=== PATIENT | male | born 1950 | race Caucasian/White ===

== ENCOUNTER 2017-08-09 18:45 | Observation (INO) ==
[2017-08-09] MEDS ORDERED: Aspirin 325 MG TABLET PO ONE (20:24)
[2017-08-09 20:39] LABS: Basophils % 0.4 %; Eosinophils # 0.2 K/mcL (0.0-0.6); Eosinophils % 2.3 %; Hematocrit 40.4 % (37.5-50.1); Immature Granulocytes % 0.3 % (0-4); Lymphocytes # 1.3 K/mcL (0.6-4.6); Lymphocytes % 12.8 %; Mean Corpuscular HGB Conc 34.7 g/dL (31.6-35.5); Mean Corpuscular Hemoglobin 30.3 pg (28.0-33.3); Mean Corpuscular Volume 87.4 fL (83.0-100.0); Mean Platelet Volume 8.4 fL (9.4-12.4); Monocytes # 1.2 K/mcL (0.0-1.3); Monocytes % 11.7 %; Neutrophils # 7.1 K/mcL (1.6-8.9); Platelet Count 308 K/mcL (140-400); Red Blood Count 4.62 M/mcL (4.19-5.50); Red Cell Distribution Width 12.5 % (11.5-14.5); Segmented Neutrophils % 72.5 %
--- NOTE | 2017-08-09 20:51 | Emergency Department Note ---
Disposition Clinical Impression: Chest pain Disposition: Admitted As Inpatient Condition: Good Time of Disposition: 21:45 Chest Pain HPI - General Chief Complaint: ED Chest Pain Stated Complaint: Chest tightness pressure Time Seen by Provider: 08/09/17 20:08 Source: patient Mode of arrival: ambulatory Limitations: no limitations Vital Signs Reviewed: Yes Nursing Notes Reviewed: Yes - History of Present Illness HPI Narrative: Patient presents to the ED with a 2 day history of chest discomfort. Patient has no previous history of coronary artery disease and had a normal stress test several years ago. Reports that yesterday evening he started having some dull upper central his chest discomfort radiating into his jaws bilaterally. Nothing seemed to make it better. It did go away but it came back around 2 PM today. States it is made worse by sitting forward completely. States his pain is 2 out of 10 currently. Denied any request for further treatment at this time. No nausea, diaphoresis or vomiting. No abdominal pain or shortness of breath. No pain or swelling in his legs. Severity scale (1-10): 6 - Related Data Home Medications Medication Instructions Recorded Confirmed Atorvastatin [Lipitor] 10 mg PO HS 08/09/17 08/09/17 Multivitamin [One Daily Essential] 1 each PO DAILY 08/09/17 08/09/17 Allergies Allergy/AdvReac Type Severity Reaction Status Date / Time Penicillins Allergy Hives Verified 09/16/16 13:25 Sulfa (Sulfonamide Allergy Hives Verified 09/16/16 13:25 Antibiotics) aspirin [ASA] AdvReac Gastrointestinal Verified 09/16/16 13:25 Upset Tetracyclines AdvReac See Verified 09/16/16 13:25 Comments zomax Allergy See Uncoded 09/16/16 13:25 Comments All systems ED: reviewed and negative except as stated. Constitutional: Denies: fever Cardiovascular: Reports: chest pain. Denies: dyspnea on exertion Respiratory: Denies: dyspnea Gastrointestinal: Denies: vomiting Musculoskeletal: Denies: back pain Neurological: Denies: headache Chest Pain PMH - Past Medical History Medical history: Reports: hyperlipidemia Psychiatric history: Reports: no psych history - Social History Smoking Status: Never smoker Alcohol use: Reports: occasionally Drug use: Reports: none Physical Exam - General Limitations: no limitations General appearance: alert, in no apparent distress - Head Head exam: atraumatic, normocephalic, normal inspection - Eye Eye exam: Present: normal appearance, PERRL, EOMI - ENT ENT exam: normal exam, normal oropharynx, mucous membranes moist - Neck Neck exam: Present: normal inspection, full ROM, trachea midline - Chest Chest inspection: Present: normal inspection, symmetric chest wall rise. Absent : tenderness - Respiratory Respiratory exam: Present: normal lung sounds bilaterally - Cardiovascular Cardiovascular exam: Present: regular rate, normal rhythm, normal heart sounds - Abdominal Exam Abdominal exam: Present: soft, Non-Tender. Absent: tenderness, distention, guarding, rebound, rigidity - Extremities Exam Extremities exam: Present: normal inspection, full ROM, normal capillary refill. Absent: tenderness, pedal edema - Neurological Exam Neurological exam: Present: alert, oriented X3 - Psychiatric Psychiatric exam: Present: normal affect, normal mood - Skin Skin exam: Present: warm, dry, intact, normal color Course Course Narrative: 67 -year-old male presenting with chest pain. Heart score is 4. Will admit. - Reevaluation(s) Reevaluation #1: Patient admitted to the hospital service. Vital Signs Temperature 99.0 F 08/09/17 19:01 Pulse Rate 97 08/09/17 19:01 Respiratory Rate 16 08/09/17 19:01 Blood Pressure 155/87 08/09/17 19:01 O2 Sat by Pulse Oximetry 98 08/09/17 19:01 Temperature 98.2 F 08/10/17 03:24 Pulse Rate 83 08/10/17 03:24 Respiratory Rate 16 08/10/17 03:24 Blood Pressure 119/45 08/10/17 03:24 O2 Sat by Pulse Oximetry 92 08/10/17 03:24 Oxygen Delivery Oxygen Delivery Room Air Chest Pain - Medical Records Medical records reviewed: Yes I reviewed the patient's medical records. - Lab Data Lab results reviewed: Yes I reviewed the patient's lab results. Result diagrams: 08/09/17 20:18 08/09/17 20:18 Lab Results 08/09/17 08/09/17 08/09/17 Range/Units 20:18 20:18 20:18 WBC 9.8 (4.3-11.1) K/mcL RBC 4.62 (4.19-5.50) M/mcL Hgb 14.0 (12.9-16.9) g/dL Hct 40.4 (37.5-50.1) % MCV 87.4 (83.0-100.0) fL MCH 30.3 (28.0-33.3) pg MCHC 34.7 (31.6-35.5) g/dL RDW 12.5 (11.5-14.5) % Plt Count 308 (140-400) K/mcL MPV 8.4 L (9.4-12.4) fL Immature Gran % 0.3 (0-4) % Seg Neutrophils % 72.5 % Lymphocytes % 12.8 % Monocytes % 11.7 % Eosinophils % 2.3 % Basophils % 0.4 % Neutrophils # 7.1 (1.6-8.9) K/mcL Lymphocytes # 1.3 (0.6-4.6) K/mcL Monocytes # 1.2 (0.0-1.3) K/mcL Eosinophils # 0.2 (0.0-0.6) K/mcL Basophils # 0.0 (0.0-0.2) K/mcL D-Dimer (0-500) ng/mLFEU Sodium 140 (136-145) mEq/L Potassium 3.9 (3.5-4.5) mEq/L Chloride 105 (98-109) mEq/L Carbon Dioxide 26 (19-29) mEq/L BUN 11 (8-26) mg/dL Creatinine 0.99 (0.72-1.25) mg/dL Est GFR ( Amer) > 60 (> 60) Est GFR (Non-Af Amer) > 60 (> 60) BUN/Creatinine Ratio 11 (6-26) Glucose 120 H (70-99) mg/dL Calculated Osmolality 291 (280-300) Calcium 10.1 (8.6-10.8) mg/dL Troponin I 0.00 (0-0.03) ng/mL 08/09/17 Range/Units 20:18 WBC (4.3-11.1) K/mcL RBC (4.19-5.50) M/mcL Hgb (12.9-16.9) g/dL Hct (37.5-50.1) % MCV (83.0-100.0) fL MCH (28.0-33.3) pg MCHC (31.6-35.5) g/dL RDW (11.5-14.5) % Plt Count (140-400) K/mcL MPV (9.4-12.4) fL Immature Gran % (0-4) % Seg Neutrophils % % Lymphocytes % % Monocytes % % Eosinophils % % Basophils % % Neutrophils # (1.6-8.9) K/mcL Lymphocytes # (0.6-4.6) K/mcL Monocytes # (0.0-1.3) K/mcL Eosinophils # (0.0-0.6) K/mcL Basophils # (0.0-0.2) K/mcL D-Dimer 333 (0-500) ng/mLFEU Sodium (136-145) mEq/L Potassium (3.5-4.5) mEq/L Chloride (98-109) mEq/L Carbon Dioxide (19-29) mEq/L BUN (8-26) mg/dL Creatinine (0.72-1.25) mg/dL Est GFR ( Amer) (> 60) Est GFR (Non-Af Amer) (> 60) BUN/Creatinine Ratio (6-26) Glucose (70-99) mg/dL Calculated Osmolality (280-300) Calcium (8.6-10.8) mg/dL Troponin I (0-0.03) ng/mL - Radiology Data Radiology results reviewed: Yes I reviewed the patient's radiology results. Chest X-Ray 08/09/17 19:06 IMPRESSION: No radiographic evidence of acute cardiopulmonary disease. D/ / Baldemar Vann MD / Baldemar Vann MD Interpreting Provider: Baldemar Vann MD - EKG Data EKG attestation: Yes I reviewed and interpreted this EKG. EKG results narrative: Sinus rhythm, rate 88, para 128, QRS 102, QTC 41, normal axis, no ischemic changes Heart Score - Score History: Moderately Suspicious EKG: Normal Age: Greater than 65 Risk Factors: 1-2 risk factors Troponin: Less than normal limit HEART Score Total: 4 Attestation Statement - Attestation Attestation: I, Gianni Price, examined this patient and my medical decision-making was reviewed with the GROUP ACCOUNT DIRECTOR/PA/Advanced Practice Nurse/Resident Physician. I agree with the documented findings, disposition and treatment plan as described except to the extent set forth below. 67-year-old male presents with concerns of chest pain intermittently over the past 2 days. Patient states the pain as a tightness in his chest that radiates to his left neck. Patient reports associated shortness of breath however he denies diaphoresis or palpitations or syncope. Last stress test was greater than 3 years ago. Patient denies fever, chills, vomiting, diarrhea. Initial troponin negative. Initial EKG did not show evidence of STEMI. Patient will be admitted to the hospital for further care and evaluation of his acute chest pain.
[2017-08-09 20:52] LABS: BUN/Creatinine Ratio 11 (6-26); Blood Urea Nitrogen 11 mg/dL (8-26); Calcium 10.1 mg/dL (8.6-10.8); Carbon Dioxide 26 mEq/L (19-29); Chloride 105 mEq/L (98-109); Glucose 120 mg/dL (70-99); Osmolality,Calculated 291 (280-300); Potassium 3.9 mEq/L (3.5-4.5); Sodium 140 mEq/L (136-145); eGFR For African Americans > 60 (> 60); eGFR For Non-African Americans > 60 (> 60)
[2017-08-10] MEDS ORDERED: Acetaminophen 325 MG TABLET PO PRN (07:55)
[2017-08-10] MEDS ORDERED: *HR* HYDROcodone/Acet 5/325 mg TABLET PO PRN (07:55)
[2017-08-10] MEDS ORDERED: Naloxone 0.4 MG/ML INJ IVP PRN (07:55)
[2017-08-10] MEDS ORDERED: Ondansetron 4 MG/2 ML VIAL IVP PRN (07:55)
--- NOTE | 2017-08-10 07:55 | Internal Med History&Physical ---
Date of Encounter: 08/10/17 Time of Encounter: 07:54 Assessment and Plan (1) Hyperlipidemia Current visit: Yes Status: Acute We will check lipid panel in a.m. Continue Lipitor. Qualifiers: Hyperlipidemia type: unspecified Qualified Code(s): E78.5 - Hyperlipidemia , unspecified (2) DVT prophylaxis Current visit: Yes Status: Acute Encourage early ambulation. He does not require pharmacological prophylaxis per the VTE assessment score. (3) Chest pain Current visit: Yes Status: Acute Subjective features concerning for coronary artery disease, hold her overall chest pain is atypical. EKG was normal. Her troponin was negative. Chest pain has resolved. He has an adverse reaction to aspirin and therefore I will not prescribe aspirin. Will observe, place heart monitor, trend troponin, obtain echocardiogram and stress test. Qualifiers: Chest pain type: precordial pain Qualified Code(s): R07.2 - Precordial pain Internal Medicine - H&P: HPI Chief complaint: Chest pain Admitted From: Emergency Dept Plans for Post Hospital Care: Home History of present illness: Mr. Mccormack is a 67 year old male with past medical history significant for coronary artery disease who presented to the hospital for evaluation of chest pain. He reported sudden onset midsternal dull, pressure-like chest pain radiating to the neck, graded at 6/10 associated with shortness of breath that started while he was playing with his grandchild. His pain lasted for 3 hours between 6 PM and 9 PM last night instantaneously resolved. Workup done in the emergency department included an EKG which was negative and troponin within normal limits. He was admitted for further care. A 10 point review of systems was positive for back pain he has had recent back surgery, and his back pain has significantly improved. Past medical history dyslipidemia Family history positive for VT and the patient's brother at age 58. Social history he denies tobacco alcohol and drug use. Past Med Surg Social Fam HX - Past Medical History Medical history: hyperlipidemia Psychiatric history: no psych history - Social History Smoking Status: Never smoker Smokeless Tobacco Status: No Alcohol use: occasionally Drug use: none - Family History Brother Living Status: Age at : 58 Hx Family Cardiac Disorders: Yes (VT) Internal Medicine - H&P: Meds Atorvastatin [Lipitor] 10 mg PO HS 08/09/17 [History] Multivitamin [One Daily Essential] 1 each PO DAILY 08/09/17 [History] 3 Allergy/AdvReac Type Severity Reaction Status Date / Time Penicillins Allergy Hives Verified 09/16/16 13:25 Sulfa (Sulfonamide Allergy Hives Verified 09/16/16 13:25 Antibiotics) aspirin [ASA] AdvReac Gastrointestinal Verified 09/16/16 13:25 Upset Tetracyclines AdvReac See Verified 09/16/16 13:25 Comments zomax Allergy See Uncoded 09/16/16 13:25 Comments All Systems PM: A 10-system review of systems was performed and is negative for pertinent findings except as documented above in the HPI. - Constitutional Vitals: Temp Pulse Resp BP Pulse Ox 98.0 F 77 16 105/67 95 08/10/17 07:46 08/10/17 07:46 08/10/17 07:46 08/10/17 07:46 08/10/17 07:46 General appearance: Present: A&O X 3, no acute distress - Eye Eye exam: Present: PERRL, conjuntiva pink, sclera anicteric Pupils: Present: PERRL - Respiratory Respiratory exam: Present: CTAB. Absent: accessory muscle use, rales, rhonchi, wheezes - Cardiovascular Cardiovascular exam: Present: RRR, +S1, +S2. Absent: diastolic murmur, gallop, rubs, systolic murmur - GI/Abdominal GI/Abdominal exam: Present: normal bowel sounds, soft, no peritoneal signs. Absent: distended, tenderness - Extremities Exam Extremities exam: Present: warm, radial pulses palpable and symmetrical. Absent : calf tenderness, cyanotic, pedal edema - Skin Skin exam: Present: dry, intact Internal Med - H&P Results - Labs CBC & Chem 7: 08/09/17 20:18 08/09/17 20:18 Labs: Cardiac Enzymes 08/10/17 Range/Units 06:04 Troponin I 0.00 (0-0.03) ng/mL - EKG Data -: EKG Interpreted by Myself EKG shows normal: sinus rhythm, axis, intervals, QRS complexes, ST-T waves Rate: normal (88 BPM)
--- NOTE | 2017-08-10 12:37 | Electrocardiograph Report ---
[place] [id number] Test Date: 2017-08-09 Pat Name: Gideon Mccormack Department: [id number] Room: 3B Gender: M Sole Rounder: MAGNO : 1950 Requested By: Lia Price Order Number: [id number] Reading MD: Zaid Hudson Measurements Intervals [place] Rate: 88 P: 18 HI: 128 QRS: 11 QRSD: 102 T: 56 QT: 355 QTc: 401 Interpretive Statements SINUS RHYTHM Electronically Signed On 08-10-2017 12:36:01 EDT by Zaid Hudson
[2017-08-11 04:15] LABS: Basophils # 0.1 K/mcL (0.0-0.2); Basophils % 0.7 %; Eosinophils # 0.4 K/mcL (0.0-0.6); Eosinophils % 4.8 %; Hematocrit 38.4 % (37.5-50.1); Hemoglobin 13.2 g/dL (12.9-16.9); Immature Granulocytes % 0.2 % (0-4); Lymphocytes # 1.6 K/mcL (0.6-4.6); Lymphocytes % 20.3 %; Mean Corpuscular HGB Conc 34.4 g/dL (31.6-35.5); Mean Corpuscular Hemoglobin 30.1 pg (28.0-33.3); Mean Corpuscular Volume 87.5 fL (83.0-100.0); Mean Platelet Volume 8.6 fL (9.4-12.4); Monocytes # 0.9 K/mcL (0.0-1.3); Monocytes % 11.4 %; Neutrophils # 5.1 K/mcL (1.6-8.9); Platelet Count 284 K/mcL (140-400); Red Blood Count 4.39 M/mcL (4.19-5.50); Red Cell Distribution Width 12.4 % (11.5-14.5); Segmented Neutrophils % 62.6 %
[2017-08-11 04:23] LABS: BUN/Creatinine Ratio 16 (6-26); Blood Urea Nitrogen 14 mg/dL (8-26); Calcium 9.4 mg/dL (8.6-10.8); Carbon Dioxide 26 mEq/L (19-29); Chloride 106 mEq/L (98-109); Chol/HDL Ratio 2.7 (0-4.9); Cholesterol 128 mg/dL (< 200); Glucose 103 mg/dL (70-99); HDL Cholesterol 48 mg/dL (40-59); LDL Cholesterol,Calculated 67 mg/dL (0-99); Magnesium 2.1 mg/dL (1.6-2.6); Osmolality,Calculated 291 (280-300); Potassium 3.8 mEq/L (3.5-4.5); Sodium 140 mEq/L (136-145); Triglycerides 65 mg/dL (< 150); eGFR For African Americans > 60 (> 60); eGFR For Non-African Americans > 60 (> 60)
[2017-08-11] MEDS ORDERED: Regadenoson 0.4 MG/5 ML SYRINGE IVP ONE (06:03)
--- NOTE | 2017-08-11 11:48 | Internal Med Progress Note ---
<Ruthie Aguilar - Last Filed: 08/11/17 13:30> Date of Encounter: 08/11/17 Time of Encounter: 11:45 - Assessment and plan (1) Chest pain Current Visit: Yes Status: Acute Assessment and plan: Patient with atypical chest pain that he describes as pleuritic and positional in nature. Initial cardiac workup in the emergency department was negative for ACS. However, patient does have positive family history for a brother with an GA at 58. Patient underwent stress testing this morning. -Follow-up stress test. -Patient with adverse reactions to aspirin including nausea. -Stress test negative, patient will be discharged home from the hospital. Qualifiers: Chest pain type: unspecified Qualified Code(s): R07.9 - Chest pain, unspecified (2) Hyperlipidemia Current Visit: Yes Status: Acute Assessment and plan: Patient takes atorvastatin per his primary care physician. -Continue home medications. Qualifiers: Hyperlipidemia type: unspecified Qualified Code(s): E78.5 - Hyperlipidemia , unspecified (3) DVT prophylaxis Current Visit: Yes Status: Acute Assessment and plan: Patient ambulating around the room. - Subjective Interval history: Mr. Montiel is a 67-year-old male with past medical history of hyperlipidemia. He presented to the hospital for evaluation of chest pain which he reports as midsternal dull, pressure-like chest pain radiating to his back and neck. He describes this chest pain as pleuritic and positional. Workup in the emergency department including EKG and troponin were negative. Patient went for a stress test this morning. He was resting comfortably this morning. He did state his pain returned while he was taking deep breaths during my examination. He describes his pain as being in his back. Upon further questioning, patient says this pain began shortly after starting to spread fertilizer on Wednesday. He has denied any nausea or vomiting. He states his shortness of breath is really more from pain on taking a breath. - Constitutional Vitals: Temp Pulse Resp BP Pulse Ox 97.8 F 71 14 122/73 95 08/11/17 08:59 08/11/17 08:59 08/11/17 08:59 08/11/17 08:59 08/11/17 08:59 General appearance: Present: A&O X 3, no acute distress - Respiratory Respiratory exam: Present: CTAB. Absent: accessory muscle use, rales, rhonchi, wheezes - Cardiovascular Cardiovascular exam: Present: RRR, +S1, +S2. Absent: diastolic murmur, gallop, rubs, systolic murmur - GI/Abdominal GI/Abdominal exam: Present: normal bowel sounds, soft, no peritoneal signs. Absent: distended, tenderness - Extremities Exam Extremities exam: Present: warm, radial pulses palpable and symmetrical. Absent : calf tenderness, cyanotic, pedal edema Internal Medicine: Result - Labs CBC & Chem 7: 08/11/17 03:36 08/11/17 03:36 Labs: Short CBC 08/11/17 Range/Units 03:36 WBC 8.1 (4.3-11.1) K/mcL Hgb 13.2 (12.9-16.9) g/dL Hct 38.4 (37.5-50.1) % Plt Count 284 (140-400) K/mcL Neutrophils # 5.1 (1.6-8.9) K/mcL BMP 08/11/17 03:36 Sodium 140 Potassium 3.8 Chloride 106 Carbon Dioxide 26 BUN 14 Creatinine 0.86 Glucose 103 H Calcium 9.4 Cardiac Enzymes 08/10/17 Range/Units 12:12 Troponin I 0.01 (0-0.03) ng/mL - ABG Interpretation ABG results: PT/INR, D-dimer D-Dimer 333 ng/mLFEU (0-500) 08/09/17 20:18 - Impressions Impressions Echocardiogram 08/10/17 14:59 Impressions: LVEF 65%. Mild left ventricular diastolic dysfunction. Asymmetric basal septal hypertrophy. No LVOTO. Normal right ventricular structure and function. Mild mitral regurgitation. Mild tricuspid regurgitation. No pulmonary hypertension. Left Ventricular Wall Motion: Rest Echo Findings All wall segments showed normal motion. Findings: Study Quality * Technically adequate exam. ECG Findings * Normal sinus rhythm. Left Ventricle * LVEF 65%. * Mild left ventricular diastolic dysfunction. * Asymmetric basal septal hypertrophy. No LVOTO. * Normal LV size. Right Ventricle * Normal right ventricular structure and function. Aorta * Normally sized aortic root. Left Atrium * Normal left atrial size. Right Atrium * Normal right atrial size. Aortic Valve * No aortic regurgitation. * Trileaflet aortic valve. * Normal aortic valve structure. * No aortic stenosis. Mitral Valve * Normal mitral valve structure. * No mitral stenosis. * Mild mitral regurgitation. Tricuspid Valve * Normal tricuspid valve structure. * Mild tricuspid regurgitation. * Estimated RA pressure is 3 mmHg. * Estimated RVSP is 26 mmHg. * No pulmonary hypertension. Pulmonic Valve * Pulmonic valve is not well visualized. * No pulmonic stenosis. * No pulmonic regurgitation. Pulmonary Artery * Pulmonary artery not well visualized. Pericardium * There is no pericardial effusion present. Interatrial Septum * No evidence of PFO by color Doppler. IVC * Normal IVC dimensions and inspiratory collapse. Consult Discharge Plan - Plan Additional Instructions: It is likely that your atypical chest pain is from pleuritis as it is worsening with deep inspiration and positional in nature. Your workup in the emergency department and hospital was negative for acute coronary syndrome or pulmonary embolism. We are discharging him home with a short course of Mobic which will help with your discomfort. Please follow-up with your primary care provider in the next week. If your chest pain worsens and increases in severity, please return to the emergency department immediately. Referrals: Cristin Lorenzo CNP [Primary Care Provider] - 08/19/17 3:00 pm Prescriptions: Meloxicam [Mobic] 7.5 mg PO DAILY #10 tablet <Abbe Billy H - Last Filed: 08/11/17 14:05> Date of Encounter: 08/11/17 - Constitutional Vitals: Temp Pulse Resp BP Pulse Ox 98 F 84 16 126/81 95 08/11/17 12:40 08/11/17 12:40 08/11/17 12:40 08/11/17 12:40 08/11/17 12:40 Internal Medicine: Result - Labs CBC & Chem 7: 08/11/17 03:36 08/11/17 03:36 Labs: Short CBC 08/11/17 Range/Units 03:36 WBC 8.1 (4.3-11.1) K/mcL Hgb 13.2 (12.9-16.9) g/dL Hct 38.4 (37.5-50.1) % Plt Count 284 (140-400) K/mcL Neutrophils # 5.1 (1.6-8.9) K/mcL BMP 08/11/17 03:36 Sodium 140 Potassium 3.8 Chloride 106 Carbon Dioxide 26 BUN 14 Creatinine 0.86 Glucose 103 H Calcium 9.4 - ABG Interpretation ABG results: PT/INR, D-dimer D-Dimer 333 ng/mLFEU (0-500) 08/09/17 20:18 - Impressions Impressions Echocardiogram 08/10/17 14:59 Impressions: LVEF 65%. Mild left ventricular diastolic dysfunction. Asymmetric basal septal hypertrophy. No LVOTO. Normal right ventricular structure and function. Mild mitral regurgitation. Mild tricuspid regurgitation. No pulmonary hypertension. Left Ventricular Wall Motion: Rest Echo Findings All wall segments showed normal motion. Findings: Study Quality * Technically adequate exam. ECG Findings * Normal sinus rhythm. Left Ventricle * LVEF 65%. * Mild left ventricular diastolic dysfunction. * Asymmetric basal septal hypertrophy. No LVOTO. * Normal LV size. Right Ventricle * Normal right ventricular structure and function. Aorta * Normally sized aortic root. Left Atrium * Normal left atrial size. Right Atrium * Normal right atrial size. Aortic Valve * No aortic regurgitation. * Trileaflet aortic valve. * Normal aortic valve structure. * No aortic stenosis. Mitral Valve * Normal mitral valve structure. * No mitral stenosis. * Mild mitral regurgitation. Tricuspid Valve * Normal tricuspid valve structure. * Mild tricuspid regurgitation. * Estimated RA pressure is 3 mmHg. * Estimated RVSP is 26 mmHg. * No pulmonary hypertension. Pulmonic Valve * Pulmonic valve is not well visualized. * No pulmonic stenosis. * No pulmonic regurgitation. Pulmonary Artery * Pulmonary artery not well visualized. Pericardium * There is no pericardial effusion present. Interatrial Septum * No evidence of PFO by color Doppler. IVC * Normal IVC dimensions and inspiratory collapse. - Attending Attestation stress test today. I examined this patient and my medical decision-making was reviewed with the Resident Physician. I agree with the documented findings, disposition and treatment plan as described except to the extent set forth below.
--- NOTE | 2017-08-11 13:37 | Discharge Summary ---
<BetoshreyasRuthie maldonado - Last Filed: 08/11/17 13:44> Date of Encounter: 08/11/17 Time of Encounter: 13:37 - Discharge Diagnosis (1) Chest pain Priority: Primary Status: Acute Qualifiers: Chest pain type: unspecified Qualified Code(s): R07.9 - Chest pain, unspecified (2) Hyperlipidemia Priority: Secondary Status: Acute Qualifiers: Hyperlipidemia type: unspecified Qualified Code(s): E78.5 - Hyperlipidemia , unspecified (3) DVT prophylaxis Priority: Secondary Status: Acute - Discharge Medications Prescriptions: Meloxicam [Mobic] 7.5 mg PO DAILY #10 tablet Home Medications: Atorvastatin [Lipitor] 10 mg PO HS 08/09/17 [History] Multivitamin [One Daily Essential] 1 each PO DAILY 08/09/17 [History] Meloxicam [Mobic] 7.5 mg PO DAILY #10 tablet 08/11/17 [Rx] Allergies/Adverse Reactions: 3 Allergy/AdvReac Type Severity Reaction Status Date / Time Penicillins Allergy Hives Verified 09/16/16 13:25 Sulfa (Sulfonamide Allergy Hives Verified 09/16/16 13:25 Antibiotics) aspirin [ASA] AdvReac Gastrointestinal Verified 09/16/16 13:25 Upset Tetracyclines AdvReac See Verified 09/16/16 13:25 Comments zomax Allergy See Uncoded 09/16/16 13:25 Comments Procedures/tests Complete & Pending: Procedures Performed prior 72 hours Category Date Time Status NM rohit perf SPECT multi [NM] Routine Exams 08/10/17 14:59 Taken EV echocardiogram Routine Y 08/10/17 14:59 Completed SP pharm nuclear stress Routine Y 08/11/17 07:15 Completed Date of admission: 08/09/17 21:56 Primary care physician: Cristin Lorenzo CNP - Patient Status Disposition: Home, Self-Care Condition: Good Overall status at discharge: patient is progressing back to baseline - Discharge Instructions Follow Up With: Cristin Lorenzo CNP [Primary Care Provider] - 08/19/17 3:00 pm Additional Instructions: It is likely that your atypical chest pain is from pleuritis as it is worsening with deep inspiration and positional in nature. Your workup in the emergency department and hospital was negative for acute coronary syndrome or pulmonary embolism. We are discharging him home with a short course of Mobic which will help with your discomfort. Please follow-up with your primary care provider in the next week. If your chest pain worsens and increases in severity, please return to the emergency department immediately. - Diet and Activity Activity: increase activity as tolerated Diet: advance to your usual diet Hospital course: Mr. Mccormack is a 67 year old male with past medical history of hyperlipidemia and positive family medical history of myocardial infarction in his brother. He presented to the emergency department with substernal chest pain that was sudden in onset, dull, and pressure-like. He described the pain as radiating to his neck and graded as 6 out of 10 in severity. His chest pain was associated with shortness of breath. He noticed it while leaning forward on the ground playing with his granddaughter. The pain lasted for about 3 hours, then resolved. Workup in the emergency department included d-dimer, EKG, and troponins, which were all within normal limits. Patient was admitted for further care due to his positive family medical history. Patient underwent nuclear stress testing this morning which was negative for ischemia. Low level exercise ECG was also negative for ischemia. Patient's gated ejection fraction was found to be greater than 70%. Patient was resting comfortably this morning. Upon further questioning, patient stated he had attempted to spread on fertilizer 2 days ago, which he stopped. He describes his chest pain as pleuritic, and worsening with deep inspiration. Overall, he stated his pain is much better. We are discharging him home with Mobic for his atypical chest pain which is pleuritic in nature and consistent with pleuritis. Patient expressed understanding of the plan. All questions were answered. - Time Spent with Patient Total time spent providing and/or coordinating discharge services: Greater than 30 minutes (40 minutes) - Constitutional Vitals: Temp Pulse Resp BP Pulse Ox 98 F 84 16 126/81 95 08/11/17 12:40 08/11/17 12:40 08/11/17 12:40 08/11/17 12:40 08/11/17 12:40 General appearance: Present: A&O X 3, no acute distress - Respiratory Respiratory exam: Present: CTAB. Absent: accessory muscle use, rales, rhonchi, wheezes Additional comments: no carotid bruits - Cardiovascular Cardiovascular exam: Present: RRR, +S1, +S2. Absent: diastolic murmur, gallop, rubs, systolic murmur - GI/Abdominal GI/Abdominal exam: Present: normal bowel sounds, soft, no peritoneal signs. Absent: distended, tenderness - Extremities Exam Extremities exam: Present: warm, radial pulses palpable and symmetrical. Absent : calf tenderness, cyanotic, pedal edema <KamranAbbe An Cesar - Last Filed: 08/11/17 14:05> Date of Encounter: 08/11/17 Procedures/tests Complete & Pending: Procedures Performed prior 72 hours Category Date Time Status NM rohit perf SPECT multi [NM] Routine Exams 08/10/17 14:59 Taken EV echocardiogram Routine Y 08/10/17 14:59 Completed SP pharm nuclear stress Routine Y 08/11/17 07:15 Completed Date of admission: 08/09/17 21:56 Primary care physician: Cristin Lorenzo CNP Hospital course: Mr. Mccormack is a 67 year old male - Time Spent with Patient Total time spent providing and/or coordinating discharge services: - Constitutional Vitals: Temp Pulse Resp BP Pulse Ox 98 F 84 16 126/81 95 08/11/17 12:40 08/11/17 12:40 08/11/17 12:40 08/11/17 12:40 08/11/17 12:40 - Attending Attestation Atypical chest pain I examined this patient and my medical decision-making was reviewed with the Resident Physician. I agree with the documented findings, disposition and treatment plan as described except to the extent set forth below.
[2017-08-11 14:25] VITALS: BP 117/72
[2017-08-12 17:44] LABS: CK-MB (CK isoenzymes) 0 % (0-4); CK-MM (CK-isoenzymes) 100 % (96-100)
[2017-08-12 17:44] LABS: CK-MB (CK isoenzymes) 0 % (0-4); CK-MM (CK-isoenzymes) 100 % (96-100)
[2017-08-13 07:10] LABS: CK Total (Ck Isoenzymes) 55 U/L (20-200); CK-BB (CK isoenzymes) 0 % (0-0)
[2017-08-13 07:10] LABS: CK Total (Ck Isoenzymes) 56 U/L (20-200); CK-BB (CK isoenzymes) 0 % (0-0)
== END 2017-08-11 15:17 | disposition home or self-care (01) ==
LOC: EMEROO 18:45 → 3BNU 18:45 → SUATTDRO 21:56 → 3BNU 22:14
PROVIDERS: ADMIT Internal Medicine; ATTEND Internal Medicine